=== PATIENT | male | born 1940 | race African-American/Black ===

== ENCOUNTER 2024-02-27 17:02 | Inpatient (IN) | payer OTHER ==
[2024-02-27 18:23] LABS: HEMOGLOBIN 16.9 GM/dL (11.7-16.9); RBC 5.41 M/mm3 (4.00-5.60); WHITE BLOOD COUNT 9.6 K/mm3 (4.0-10.0)
[2024-02-27 18:24] LABS: BASO % 0.4 % (0-2.0); EOS % 0.5 % (0-4.5); HEMATOCRIT 49.7 % (35.4-49); LYMPH % 10.5 % (8-40); MCH 31.2 pg (25.7-33.7); MEAN CELL VOLUME 91.7 fl (80-96); MONO % 8.8 % (3.8-10.2); NEUT % 79.8 % (42.8-82.8); PLATELET COUNT 196 10^3/uL (134-434); RDW 13.4 % (11.9-15.9)
[2024-02-27 18:53] LABS: POTASSIUM 4.5 mmol/L (3.5-5.1)
[2024-02-27 18:54] LABS: ALBUMIN 3.9 g/dl (3.4-5.0); BLOOD UREA NITROGEN 50.8 mg/dL (7-18); CALCIUM 9.5 mg/dL (8.5-10.1)
[2024-02-27 18:58] LABS: CREATININE 3.4 mg/dL (0.55-1.3)
[2024-02-27 18:59] LABS: BILIRUBIN,TOTAL 1.6 mg/dL (0.2-1)
[2024-02-27 19:43] LABS: EPI CELLS 3 /uL (0-25.1); HYALINE CASTS 0 /uL (0-3.1); URINE APPEARANCE CLEAR; URINE BACTERIA 5 /uL (0-1359); URINE BILIRUBIN NEGATIVE (NEGATIVE); URINE COLOR DK YELLOW; URINE GLUCOSE (UA) NEGATIVE (NEGATIVE); URINE KETONE TRACE (NEGATIVE); URINE LEUK ESTERASE NEGATIVE (NEGATIVE); URINE NITRITE NEGATIVE (NEGATIVE); URINE PROTEIN 1+ (NEGATIVE); URINE RBC 1427 /uL (0-23.9); URINE UROBILINOGEN 0.2 mg/dL (0.2-1.0); URINE WBC 5 /uL (0-25.8)
[2024-02-28] MEDS: LIDOCAINE HCL 2% JELLY 10 ML CARTRIDGE UR ONE (01:03)
[2024-02-28] MEDS: TAMSULOSIN HCL 0.4 MG CAP PO SCH (07:54)
[2024-02-28] MEDS: SODIUM CHLORIDE 1,000 ML IV SCH (07:55)
[2024-02-28] MEDS: KETOROLAC TROMETHAMINE 0.5% EYE DROP 1 DROP DROPS OD SCH (09:29)
[2024-02-28] MEDS: BRIMONIDINE TARTRATE 0.2% OPHTHALMIC 5 ML BOTTLE OD SCH (09:29)
[2024-02-28] MEDS: TIMOLOL 0.5% OPHTHALMIC SOL 5 ML BOTTLE OD SCH (09:30)
[2024-02-28 10:58] LABS: BASO % 0.2 % (0-2.0); EOS % 1.2 % (0-4.5); HEMATOCRIT 43.3 % (35.4-49); HEMOGLOBIN 14.2 GM/dL (11.7-16.9); LYMPH % 9.9 % (8-40); MCH 30.5 pg (25.7-33.7); MCHC 32.9 g/dl (32.0-35.9); MEAN CELL VOLUME 92.6 fl (80-96); MEAN PLT VOLUME 7.5 fl (7.5-11.1); MONO % 8.1 % (3.8-10.2); NEUT % 80.6 % (42.8-82.8); PLATELET COUNT 165 10^3/uL (134-434); RBC 4.67 M/mm3 (4.00-5.60); RDW 13.3 % (11.9-15.9); WHITE BLOOD COUNT 8.1 K/mm3 (4.0-10.0)
[2024-02-28 11:25] LABS: POTASSIUM 3.8 mmol/L (3.5-5.1)
[2024-02-28 11:34] LABS: BLOOD UREA NITROGEN 34.7 mg/dL (7-18)
[2024-02-28 11:36] LABS: CALCIUM 8.6 mg/dL (8.5-10.1)
[2024-02-28 11:39] LABS: ALBUMIN 2.9 g/dl (3.4-5.0); CREATININE 1.4 mg/dL (0.55-1.3)
[2024-02-28 11:41] LABS: BILIRUBIN,TOTAL 1.6 mg/dL (0.2-1); TOT PROT 5.4 g/dl (6.4-8.2)
[2024-02-28] MEDS: ATORVASTATIN CA 20 MG TABLET (FP) PO SCH (21:36)
[2024-02-29 15:38] VITALS: BMI 19.3
[2024-03-01 14:59] VITALS: BP 114/66; PULSE 80; RESP 16; TEMP 98.6
== END 2024-03-01 17:28 | disposition home or self-care (01) | DRG 726 ==
LOC: JER 17:02 → JERBED 20:11 → OBSVTOIN 22:15 → J5S 23:43
PROVIDERS: ADMIT Internal Medicine; ATTEND Family Medicine
DX: N40.1 Benign prostatic hyperplasia with lower urinary tract symptoms (principal); N17.9 Acute kidney failure, unspecified; N13.8 Other obstructive and reflux uropathy; J44.9 Chronic obstructive pulmonary disease, unspecified; I25.10 Atherosclerotic heart disease of native coronary artery without angina pectoris; E78.5 Hyperlipidemia, unspecified; N40.0 Benign prostatic hyperplasia without lower urinary tract symptoms; R33.8 Other retention of urine
CPT/HCPCS: 0241U-QW; 36415; 76775-TC; 76856-TC; 80053; 81003; 85025; 87086; 99285-25; G0378